=== PATIENT | female | born 1980 | race Two or more races ===

== ENCOUNTER 2021-12-02 09:35 | Inpatient (IN) | payer OTHER ==
[2021-12-02 09:51] VITALS: BMI 36.6
[2021-12-02] MEDS ORDERED: SODIUM CHLORIDE 0.9% 500 ML INFUS.BAG IV ONE (10:09)
[2021-12-02 11:05] LABS: BASO % 0.7 % (0-2.0); EOS % 3.2 % (0-4.5); HEMATOCRIT 43.1 % (32.4-45.2); HEMOGLOBIN 14.2 GM/dL (10.7-15.3); LYMPH % 20.1 % (8-40); MCH 27.7 pg (25.7-33.7); MEAN CELL VOLUME 83.9 fl (80-96); MEAN PLT VOLUME 8.1 fl (7.5-11.1); MONO % 4.2 % (3.8-10.2); NEUT % 71.8 % (42.8-82.8); PLATELET COUNT 337 10^3/uL (134-434); RBC 5.14 M/mm3 (3.60-5.2); RDW 14.4 % (11.6-15.6); WHITE BLOOD COUNT 11.4 K/mm3 (4.0-10.0)
[2021-12-02 11:21] LABS: CHLORIDE 105 mmol/L (98-107); SODIUM 136 mmol/L (136-145)
[2021-12-02 11:23] LABS: CALCIUM 9.7 mg/dL (8.5-10.1)
[2021-12-02 11:24] LABS: ALBUMIN 3.5 g/dl (3.4-5.0); CO2 20 mmol/L (21-32); GLUCOSE,RANDOM 110 mg/dL (74-106)
[2021-12-02 11:27] LABS: CREATININE 0.8 mg/dL (0.55-1.3); SGOT/AST 55 U/L (15-37); SGPT/ALT 40 U/L (13-61)
[2021-12-02 11:29] LABS: BILIRUBIN,TOTAL 0.5 mg/dL (0.2-1); TOT PROT 8.2 g/dl (6.4-8.2)
[2021-12-02 11:30] LABS: ALK PHOS 71 U/L (45-117)
[2021-12-02 11:32] LABS: ANION GAP 11 MMOL/L (8-16)
[2021-12-02 11:54] LABS: INR 1.04 (0.83-1.09)
[2021-12-02 11:57] LABS: ACTIVATED PTT 29.7 SECONDS (25.2-36.5)
[2021-12-02 14:02] LABS: HCG,QUALITATIVE URINE Positive
[2021-12-02 14:06] LABS: EPI CELLS 31 /uL (0-25.1); HYALINE CASTS 4 /uL (0-3.1); PH,URINE 5.5 (5.0-8.0); URINE APPEARANCE CLEAR; URINE BACTERIA 4189 /uL (0-1359); URINE BILIRUBIN NEGATIVE (NEGATIVE); URINE COLOR YELLOW; URINE GLUCOSE (UA) NEGATIVE (NEGATIVE); URINE KETONE NEGATIVE (NEGATIVE); URINE LEUK ESTERASE TRACE (NEGATIVE); URINE NITRITE NEGATIVE (NEGATIVE); URINE PROTEIN NEGATIVE (NEGATIVE); URINE RBC 4 /uL (0-23.9); URINE UROBILINOGEN 0.2 mg/dL (0.2-1.0); URINE WBC 78 /uL (0-25.8)
[2021-12-02] MEDS ORDERED: CEPHALEXIN MONOHYDRATE 500 MG CAPSULE (UD) PO ONE (14:20)
[2021-12-02 16:26] LABS: BLOOD UREA NITROGEN 12.7 mg/dL (7-18); CALCIUM 8.8 mg/dL (8.5-10.1)
[2021-12-02 16:29] LABS: CREATININE 0.8 mg/dL (0.55-1.3)
[2021-12-02 16:31] LABS: BILIRUBIN,TOTAL 0.3 mg/dL (0.2-1); TOT PROT 6.7 g/dl (6.4-8.2)
[2021-12-02] MEDS ORDERED: HEPARIN NA (PORCINE) 5,000 UNITS/ML 1ML VIAL IVPUSH ONE ×2 (16:46→16:52)
[2021-12-02] MEDS ORDERED: HEPARIN NA (PORCINE) 5,000 UNITS/ML 1ML VIAL IVPUSH PRN (16:48)
[2021-12-02] MEDS ORDERED: CEPHALEXIN MONOHYDRATE 500 MG CAPSULE (UD) ONE (16:58)
[2021-12-02] MEDS ORDERED: HEPARIN NA (PORCINE) 5,000 UNITS/ML 1ML VIAL ONE (17:26)
[2021-12-02] MEDS ORDERED: HEPARIN INFUSION - 25,000 UNITS/500 ML INFUS.BAG IVPB ONE (17:26)
[2021-12-02] MEDS: HEPARIN - 25,000 UNIT in SODIUM CHLORIDE 495 ML IV SCH (18:20)
[2021-12-03] MEDS: HEPARIN - 25,000 UNIT in SODIUM CHLORIDE 495 ML IV SCH ×3 (01:20→17:25)
[2021-12-03] MEDS: HEPARIN NA (PORCINE) 5,000 UNITS/ML 1ML VIAL IVPUSH PRN ×3 (01:20→17:25)
[2021-12-03] MEDS: LEVOTHYROXINE NA 50 MCG TABLET (FP) PO SCH (08:21)
[2021-12-03] MEDS ORDERED: PROGESTERONE 50 MG/ML IM SCH (10:00)
[2021-12-03 10:13] LABS: HEMATOCRIT 37.7 % (32.4-45.2); HEMOGLOBIN 13.1 GM/dL (10.7-15.3); MCHC 34.8 g/dl (32.0-36.0); MEAN CELL VOLUME 83.4 fl (80-96); PLATELET COUNT 263 10^3/uL (134-434); RBC 4.52 M/mm3 (3.60-5.2); RDW 14.3 % (11.6-15.6); WHITE BLOOD COUNT 8.3 K/mm3 (4.0-10.0)
[2021-12-03 10:28] LABS: CALCIUM 9.3 mg/dL (8.5-10.1)
[2021-12-03 10:29] LABS: ALBUMIN 3.2 g/dl (3.4-5.0); BLOOD UREA NITROGEN 13.7 mg/dL (7-18); MAGNESIUM 2.1 mg/dL (1.8-2.4)
[2021-12-03 10:32] LABS: CREATININE 0.9 mg/dL (0.55-1.3); PHOSPHOROUS 3.4 mg/dL (2.5-4.9)
[2021-12-03 10:33] LABS: BILIRUBIN,TOTAL 0.4 mg/dL (0.2-1); TOT PROT 6.9 g/dl (6.4-8.2)
[2021-12-03 12:08] LABS: ANISOCYTOSIS 0; MACROCYTOSIS 0
[2021-12-03] MEDS: ESTRADIOL 2 MG PO SCH ×2 (13:00→21:13)
[2021-12-03] MEDS ORDERED: ACETAMINOPHEN 500 MG TABLET (FP) PO ONE (23:47)
[2021-12-04] MEDS: LEVOTHYROXINE NA 50 MCG TABLET (FP) PO SCH (06:10)
[2021-12-04 08:28] LABS: BASO % 0.9 % (0-2.0); EOS % 2.7 % (0-4.5); HEMOGLOBIN 12.9 GM/dL (10.7-15.3); LYMPH % 14.9 % (8-40); MCH 27.6 pg (25.7-33.7); MCHC 33.1 g/dl (32.0-36.0); MEAN CELL VOLUME 83.2 fl (80-96); MEAN PLT VOLUME 8.4 fl (7.5-11.1); MONO % 4.6 % (3.8-10.2); NEUT % 76.9 % (42.8-82.8); PLATELET COUNT 291 10^3/uL (134-434); RBC 4.68 M/mm3 (3.60-5.2); RDW 14.1 % (11.6-15.6); WHITE BLOOD COUNT 9.4 K/mm3 (4.0-10.0)
[2021-12-04 08:48] LABS: ALBUMIN 3.1 g/dl (3.4-5.0); BLOOD UREA NITROGEN 10.4 mg/dL (7-18); CALCIUM 9.5 mg/dL (8.5-10.1)
[2021-12-04 08:52] LABS: CREATININE 0.8 mg/dL (0.55-1.3)
[2021-12-04 08:53] LABS: BILIRUBIN,TOTAL 0.4 mg/dL (0.2-1); TOT PROT 6.9 g/dl (6.4-8.2)
[2021-12-04] MEDS: ESTRADIOL 2 MG PO SCH ×2 (10:10→20:00)
[2021-12-04] MEDS: ENOXAPARIN NA (PORCINE) 80 MG/0.8 ML DISP.SYRIN SQ SCH (13:08)
[2021-12-04] MEDS: PROGESTERONE 50 MG/ML IM SCH (18:59)
[2021-12-05] MEDS: ENOXAPARIN NA (PORCINE) 80 MG/0.8 ML DISP.SYRIN SQ SCH ×2 (00:02→12:30)
[2021-12-05] MEDS: LEVOTHYROXINE NA 50 MCG TABLET (FP) PO SCH (06:54)
[2021-12-05 08:09] LABS: BASO % 0.9 % (0-2.0); EOS % 2.4 % (0-4.5); HEMATOCRIT 40.7 % (32.4-45.2); HEMOGLOBIN 13.4 GM/dL (10.7-15.3); LYMPH % 27.7 % (8-40); MCH 27.4 pg (25.7-33.7); MEAN PLT VOLUME 8.3 fl (7.5-11.1); PLATELET COUNT 327 10^3/uL (134-434); RDW 14.7 % (11.6-15.6); WHITE BLOOD COUNT 9.7 K/mm3 (4.0-10.0)
[2021-12-05 08:39] LABS: BLOOD UREA NITROGEN 11.6 mg/dL (7-18); CALCIUM 9.1 mg/dL (8.5-10.1)
[2021-12-05 08:40] LABS: ALBUMIN 3.2 g/dl (3.4-5.0)
[2021-12-05 08:43] LABS: CREATININE 0.8 mg/dL (0.55-1.3)
[2021-12-05 08:44] LABS: BILIRUBIN,TOTAL 0.5 mg/dL (0.2-1); TOT PROT 7.6 g/dl (6.4-8.2)
[2021-12-05] MEDS: ESTRADIOL 2 MG PO SCH ×2 (10:55→20:13)
[2021-12-05] MEDS: PROGESTERONE 50 MG/ML IM SCH (18:53)
[2021-12-06] MEDS: ENOXAPARIN NA (PORCINE) 80 MG/0.8 ML DISP.SYRIN SQ SCH ×2 (00:33→12:37)
[2021-12-06] MEDS: LEVOTHYROXINE NA 50 MCG TABLET (FP) PO SCH (06:17)
[2021-12-06 08:24] LABS: BASO % 0.9 % (0-2.0); HEMATOCRIT 38.5 % (32.4-45.2); LYMPH % 29.7 % (8-40); MCH 28.1 pg (25.7-33.7); MCHC 33.8 g/dl (32.0-36.0); MEAN CELL VOLUME 83.1 fl (80-96); MEAN PLT VOLUME 7.9 fl (7.5-11.1); MONO % 5.4 % (3.8-10.2); PLATELET COUNT 301 10^3/uL (134-434); RBC 4.63 M/mm3 (3.60-5.2); RDW 14.3 % (11.6-15.6); WHITE BLOOD COUNT 9.5 K/mm3 (4.0-10.0)
[2021-12-06 08:37] LABS: CALCIUM 9.4 mg/dL (8.5-10.1)
[2021-12-06 08:41] LABS: CREATININE 0.7 mg/dL (0.55-1.3)
[2021-12-06 08:43] LABS: BILIRUBIN,TOTAL 0.3 mg/dL (0.2-1)
[2021-12-06] MEDS: ESTRADIOL 2 MG PO SCH (10:42)
[2021-12-06 15:59] VITALS: BP 99/77; PULSE 91; RESP 18; TEMP 98.6
== END 2021-12-06 16:48 | disposition home or self-care (01) | DRG 833 ==
LOC: JER 09:35 → JERBED 18:43 → J4W 20:57 → OBSVTOIN 12-03 09:27
PROVIDERS: ADMIT Internal Medicine; ATTEND Internal Medicine
DX: O88.811 Other embolism in pregnancy, first trimester (principal); O99.281 Endocrine, nutritional and metabolic diseases complicating pregnancy, first trimester; O99.211 Obesity complicating pregnancy, first trimester; Z3A.01 Less than 8 weeks gestation of pregnancy; D35.2 Benign neoplasm of pituitary gland; E78.5 Hyperlipidemia, unspecified
CPT/HCPCS: 36415; 71275-TC; 80053; 81003; 81241; 82136; 83735; 83880; 83918; 84100; 84484; 84703; 85025; 85300; 85303; 85306; 85379; 85610; 85730; 86038; 93005; 93010; 93306-TC; 93970-TC; 94010; 99285-25; C9803-CS; G0378; J1644; Q9967; U0003; U0005

== ENCOUNTER 2023-08-21 02:56 | Day surgery (SDC) | payer OTHER ==
[2023-08-21 03:04] VITALS: BMI 37.6
[2023-08-21] MEDS ORDERED: ACETAMINOPHEN INJECTION 100 ML IVPB ONE (03:50)
[2023-08-21] MEDS ORDERED: ONDANSETRON 4 MG/2 ML VIAL ONE ×4 (03:50→12:33)
[2023-08-21 04:08] LABS: BASO % 0.8 % (0-2.0); EOS % 1.3 % (0-4.5); HEMATOCRIT 39.9 % (32.4-45.2); HEMOGLOBIN 13.5 GM/dL (10.7-15.3); LYMPH % 23.3 % (8-40); MCH 27.6 pg (25.7-33.7); MCHC 33.7 g/dl (32.0-36.0); MEAN CELL VOLUME 81.9 fl (80-96); MEAN PLT VOLUME 8.5 fl (7.5-11.1); MONO % 4.4 % (3.8-10.2); NEUT % 70.2 % (42.8-82.8); PLATELET COUNT 355 10^3/uL (134-434); RBC 4.88 M/mm3 (3.60-5.2); RDW 14.1 % (11.6-15.6); WHITE BLOOD COUNT 10.4 K/mm3 (4.0-10.0)
[2023-08-21] MEDS: ACETAMINOPHEN 1000 MG/100 ML BAG IVPB ONE (04:11)
[2023-08-21] MEDS: SODIUM CHLORIDE 1,000 ML IV STA (04:11)
[2023-08-21] MEDS: ONDANSETRON 4 MG/2 ML VIAL IVPUSH ONE (04:12)
[2023-08-21] MEDS ORDERED: FAMOTIDINE 20 MG/50 ML IVPB 20 MG/50 ML MG IVPB ONE (04:12)
[2023-08-21 04:14] LABS: INR 0.98 (0.83-1.09); PROTHROMBIN TIME (PATIENT) 11.1 SEC (9.7-13.0)
[2023-08-21 04:17] LABS: ACTIVATED PTT 34.1 SECONDS (25.2-36.5)
[2023-08-21] MEDS: FAMOTIDINE 20 MG/50 ML IVPB 20 MG/50 ML MG IVPB ONE (04:20)
[2023-08-21 04:29] LABS: POTASSIUM 4.3 mmol/L (3.5-5.1)
[2023-08-21 04:31] LABS: CALCIUM 9.3 mg/dL (8.5-10.1)
[2023-08-21 04:32] LABS: ALBUMIN 3.9 g/dl (3.4-5.0); BLOOD UREA NITROGEN 21.5 mg/dL (7-18)
[2023-08-21 04:35] LABS: CREATININE 0.9 mg/dL (0.55-1.3)
[2023-08-21 04:36] LABS: BILIRUBIN,TOTAL 0.3 mg/dL (0.2-1); TOT PROT 7.6 g/dl (6.4-8.2)
[2023-08-21] MEDS ORDERED: PIPERACILLIN/TAZOB 4.5 GM 4.5 GM/100 ML BAG IVPB ONE (07:37)
[2023-08-21] MEDS: PIPERACILLIN/TAZOB 4.5 GM 4.5 GM in DEXTROSE 5%-WATER 100 ML IVPB ONE (08:35)
[2023-08-21] MEDS: LACTATED RINGERS SOLUTION 1,000 ML/1,000 ML INFUS.BAG IV SCH (08:35)
[2023-08-21 08:36] LABS: PH,URINE 7.5 (5.0-8.0); URINE APPEARANCE CLEAR; URINE BILIRUBIN NEGATIVE (NEGATIVE); URINE COLOR YELLOW; URINE GLUCOSE (UA) NEGATIVE (NEGATIVE); URINE KETONE NEGATIVE (NEGATIVE); URINE LEUK ESTERASE TRACE (NEGATIVE); URINE NITRITE NEGATIVE (NEGATIVE); URINE PROTEIN NEGATIVE (NEGATIVE); URINE UROBILINOGEN 0.2 mg/dL (0.2-1.0)
[2023-08-21] MEDS ORDERED: BUPIVACAINE HCL/PF 0.25% (2.5MG/ML) 10 ML VIAL ONE (10:40)
[2023-08-21] MEDS ORDERED: ACETAMINOPHEN 1000 MG/100 ML BAG IVPB PRN (11:00)
[2023-08-21] MEDS ORDERED: PROPOFOL 20 ML ONE (11:00)
[2023-08-21] MEDS ORDERED: ROCURONIUM BROMIDE 50 MG/5 ML VIAL ONE (11:00)
[2023-08-21] MEDS ORDERED: SUCCINYLCHOLINE CHLORIDE 200 MG/10 ML SYRINGE ONE (11:01)
[2023-08-21] MEDS ORDERED: FENTANYL CITRATE/PF 50 MCG/ML VIAL ONE ×5 (11:01→15:11)
[2023-08-21] MEDS ORDERED: DEXAMETHASONE SOD PHOSPHATE 4 MG/1 ML VIAL ONE ×2 (12:00→12:04)
[2023-08-21] MEDS: BUPIVACAINE HCL/PF 2.5 MG/ML - 30 ML VIAL IJ ONE (12:10)
[2023-08-21] MEDS ORDERED: NEOSTIGMINE METHYLSULFATE 0.5 MG/1 ML - 10 ML MDV ONE ×2 (12:33→12:44)
[2023-08-21] MEDS ORDERED: GLYCOPYRROLATE 0.2 MG/1 ML VIAL ONE ×2 (12:33→12:44)
[2023-08-21] MEDS ORDERED: MIDAZOLAM HCL 2 MG/2 ML SINGLE DOSE VIAL ONE (12:37)
[2023-08-21] MEDS ORDERED: LACTATED RINGERS SOLUTION 1,000 ML/1,000 ML INFUS.BAG IV SCH (13:18)
[2023-08-21] MEDS ORDERED: ONDANSETRON 4 MG/2 ML VIAL IVPUSH PRN ×3 (13:24→14:50)
[2023-08-21] MEDS: ACETAMINOPHEN 1000 MG/100 ML BAG IVPB PRN (13:30)
[2023-08-21] MEDS: LACTATED RINGERS SOLUTION 1,000 ML IV SCH (13:40)
[2023-08-21] MEDS ORDERED: AMPICILLIN NA/SULBACTAM NA 3 GM in SODIUM CHLORIDE 100 ML IVPB SCH (15:00)
[2023-08-21 20:17] VITALS: RESP 18
[2023-08-22 09:58] VITALS: BP 94/59; PULSE 62; TEMP 98.6
== END 2023-08-22 12:01 | disposition home or self-care (01) ==
LOC: JER 02:56 → JERBED 07:31 → UNDOADMOB 07:31 → JASUSAT 13:02 → SUATTDRO 13:02 → J8W 16:17 → JASUSAT 08-22 12:01
PROVIDERS: ATTEND Nurse Practitioner Acute Care
PROC: 0FT44ZZ Resection of Gallbladder, Percutaneous Endoscopic Approach (ICD-10-PCS; principal; 2023-08-21 10:00)
DX: K81.0 Acute cholecystitis (principal)
CPT/HCPCS: 0241U-QW; 36415; 74177-TC; 76705-TC; 80053; 81003; 83036; 83690; 84484; 84703; 85025; 85610; 85730; 86850; 86900; 86901; 87086; 88304-TC; 93005; 93010; 94010; 94760; 99285-25; J0131; Q9967